=== PATIENT | male | born 1995 | race Caucasian/White ===

== ENCOUNTER 2025-03-15 17:32 | Emergency (ER) | payer BC ==
[~2025-03-15] VITALS: Ht 177.8 cm; Wt 98.7 kg
[~2025-03-15 17:32] MED LIST: CRUTCH1 EACH; NORCO 5-325 TA1 EACH PO
[2025-03-15] MEDS ORDERED: ALLEGRA ALLERG180 MG PO (18:26)
[2025-03-15] MEDS ORDERED: CELEBREX100 MG PO (20:04)
[2025-03-15] MEDS ORDERED: TRAMADOL HCL 50 MG HOME.PACK PO ONE (20:15)
[2025-03-15 20:16] VITALS: BP 123/87
== END 2025-03-15 20:16 | disposition home or self-care (01) ==
LOC: ED 17:32
DX: S93.402A Sprain of unspecified ligament of left ankle, initial encounter (principal); X58.XXXA Exposure to other specified factors, initial encounter; Y93.67 Activity, basketball
CPT/HCPCS: 73610; 99283; A9270